=== PATIENT | male | born 1975 | race Caucasian/White ===

== ENCOUNTER → 2018-03-29 | Outpatient (CLI) | payer MEDICARE ==
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
== END | disposition home or self-care (01) ==
LOC: SLEEP 14:46
PROVIDERS: ATTEND Internal Medicine Critical Care Medicine
DX: G25.81 Restless legs syndrome (principal); M50.30 Other cervical disc degeneration, unspecified cervical region; M51.36 Other intervertebral disc degeneration, lumbar region; M19.90 Unspecified osteoarthritis, unspecified site; F41.9 Anxiety disorder, unspecified; E66.9 Obesity, unspecified; Z68.42 Body mass index [BMI] 45.0-49.9, adult; Z79.899 Other long term (current) drug therapy; Z79.1 Long term (current) use of non-steroidal anti-inflammatories (NSAID); Z88.8 Allergy status to other drugs, medicaments and biological substances
CPT/HCPCS: 99211

== ENCOUNTER 2019-01-20 09:08 | Inpatient (IN) | payer MEDICARE, OTHER ==
[2019-01-20] MEDS ORDERED: SODIUM CHLORIDE 0.9% 1,000 ML IV ONE ×2 (09:39→20:58)
--- NOTE | 2019-01-20 09:43 | ED ---
General Adult HPI - General Chief complaint: Skin/Abscess/Foreign Body Stated complaint: cyst on buttocks, fever Time Seen by Provider: 01/20/19 09:29 Source: patient, RN notes reviewed Mode of arrival: ambulatory Limitations: no limitations - History of Present Illness Initial comments: 43-year-old male presents emergency Department chief complaint of fever or chills, abscess of his buttocks. Patient states that he had severe shaking chills, diaphoresis and fever last night. Patient states that he is feeling nauseated. Patient states she's also noticed pain with bowel movements in pain and perirectal region. Patient states her some swelling noted. Patient has had a prior pilonidal cyst removal why Dr. Heredia several years ago. Patient denies a reoccurrence that nature. Patient denies current abdominal pain he did have some nausea with no vomiting. Denies chest pain, URI symptoms including cough, runny nose, sore throat. Patient is not taking any recent Tylenol Motrin. - Related Data Home Medications Medication Instructions Recorded Confirmed Diclofenac Sodium [Diclofenac 100 mg PO DAILY 01/20/19 01/20/19 Sodium ER] Ergocalciferol [Vitamin D2] 50,000 unit PO Q7D 01/20/19 01/20/19 Fluticasone Nasal [place] [Flonase 2 spr EA NOSTRIL DAILY 01/20/19 01/20/19 Nasal [place]] Gabapentin [Neurontin] 600 mg PO TID 01/20/19 01/20/19 LORazepam [Ativan] 1 mg PO BID 01/20/19 01/20/19 Niacin [Niaspan] 1,000 mg PO HS 01/20/19 01/20/19 Phentermine HCl [Adipex-P] 37.5 mg PO DAILY 01/20/19 01/20/19 Pramipexole [Mirapex] 2 mg PO HS 01/20/19 01/20/19 Ranitidine HCl [Zantac] 300 mg PO BID 01/20/19 01/20/19 Rizatriptan Benzoate [Maxalt GRADUATE CIVIL ENGINEER] 10 mg PO DAILY PRN 01/20/19 01/20/19 Simvastatin [Zocor] 20 mg PO HS 01/20/19 01/20/19 metFORMIN HCL [Glucophage] 850 mg PO BID 01/20/19 01/20/19 tiZANidine [Zanaflex] 4 mg PO Q8HR 01/20/19 01/20/19 Allergies Allergy/AdvReac Type Severity Reaction Status Date / Time No Known Allergies Allergy Verified 01/20/19 09:44 Review of Systems ROS Statement: Those systems with pertinent positive or pertinent negative responses have been documented in the HPI. ROS Other: All systems not noted in ROS Statement are negative. Past Medical History Additional Past Medical History / Comment(s): chronic knee pain, DDD History of Any Multi-Drug Resistant Organisms: None Reported Past Surgical History: Back Surgery, Orthopedic Surgery Additional Past Surgical History / Comment(s): carpal tunnel release, Past Psychological History: No Psychological Hx Reported Smoking Status: Never smoker Past Alcohol Use History: None Reported Past Drug Use History: None Reported General Exam Limitations: no limitations General appearance: alert, in no apparent distress Head exam: Present: atraumatic, normocephalic, normal inspection Respiratory exam: Present: normal lung sounds bilaterally. Absent: respiratory distress, wheezes, rales, rhonchi, stridor Cardiovascular Exam: Present: regular rate, normal rhythm, normal heart sounds. Absent: systolic murmur, diastolic murmur, rubs, gallop, clicks GI/Abdominal exam: Present: soft, normal bowel sounds. Absent: distended, tenderness, guarding, rebound, rigid Rectal exam: Present: other (Swelling noted in the perirectal region, mild erythema and tenderness with palpation) Back exam: Absent: CVA tenderness (R), CVA tenderness (L) Skin exam: Present: warm, dry, intact, normal color. Absent: rash Course Vital Signs 01/20/19 01/20/19 09:09 11:10 Temperature 98.9 F 98.8 F Pulse Rate 92 82 Respiratory 18 18 Rate Blood Pressure 119/66 125/65 O2 Sat by Pulse 93 L 98 Oximetry Medical Decision Making - Medical Decision Making 43-year-old male present emergency from for fever or chills abscess. Patient has pain or inflammation with no drainable abscess. Patient is 21,000 white count, hyperglycemia. He is a diabetic. Patient blood glucose is 450. Patient will be admitted for IV antibiotics, surgery consult, glucose control. - Lab Data Result diagrams: 01/20/19 09:50 01/20/19 09:50 Lab Results 05/12/0601/20/19 01/20/19 Range/Units 09:50 09:50 09:50 WBC 20.7 H (3.8-10.6) k/uL RBC 5.14 (4.30-5.90) m/uL Hgb 15.2 (13.0-17.5) gm/dL Hct 46.4 (39.0-53.0) % MCV 90.2 (80.0-100.0) fL MCH 29.6 (25.0-35.0) pg MCHC 32.8 (31.0-37.0) g/dL RDW 14.2 (11.5-15.5) % Plt Count 237 (150-450) k/uL Neutrophils % 81 % Lymphocytes % 11 % Monocytes % 5 % Eosinophils % 1 % Basophils % 0 % Neutrophils # 16.7 H (1.3-7.7) k/uL Lymphocytes # 2.4 (1.0-4.8) k/uL Monocytes # 1.1 H (0-1.0) k/uL Eosinophils # 0.2 (0-0.7) k/uL Basophils # 0.1 (0-0.2) k/uL PT (9.0-12.0) sec INR (<1.2) APTT (22.0-30.0) sec Sodium 133 L (137-145) mmol/L Potassium 3.8 (3.5-5.1) mmol/L Chloride 100 (98-107) mmol/L Carbon Dioxide 20 L (22-30) mmol/L Anion Gap 13 mmol/L BUN 13 (9-20) mg/dL Creatinine 0.82 (0.66-1.25) mg/dL Est GFR (CKD-EPI)AfAm >90 (>60 ml/min/1.73 sqM) Est GFR (CKD-EPI)NonAf >90 (>60 ml/min/1.73 sqM) Glucose 464 H (74-99) mg/dL Plasma Lactic Acid Eric 1.4 (0.7-2.0) mmol/L Calcium 9.7 (8.4-10.2) mg/dL Total Bilirubin 0.9 (0.2-1.3) mg/dL AST 18 (17-59) U/L ALT 56 (21-72) U/L Alkaline Phosphatase 117 (38-126) U/L Total Protein 7.2 (6.3-8.2) g/dL Albumin 4.1 (3.5-5.0) g/dL 01/20/19 Range/Units 09:50 WBC (3.8-10.6) k/uL RBC (4.30-5.90) m/uL Hgb (13.0-17.5) gm/dL Hct (39.0-53.0) % MCV (80.0-100.0) fL MCH (25.0-35.0) pg MCHC (31.0-37.0) g/dL RDW (11.5-15.5) % Plt Count (150-450) k/uL Neutrophils % % Lymphocytes % % Monocytes % % Eosinophils % % Basophils % % Neutrophils # (1.3-7.7) k/uL Lymphocytes # (1.0-4.8) k/uL Monocytes # (0-1.0) k/uL Eosinophils # (0-0.7) k/uL Basophils # (0-0.2) k/uL PT 11.0 (9.0-12.0) sec INR 1.0 (<1.2) APTT 27.7 (22.0-30.0) sec Sodium (137-145) mmol/L Potassium (3.5-5.1) mmol/L Chloride (98-107) mmol/L Carbon Dioxide (22-30) mmol/L Anion Gap mmol/L BUN (9-20) mg/dL Creatinine (0.66-1.25) mg/dL Est GFR (CKD-EPI)AfAm (>60 ml/min/1.73 sqM) Est GFR (CKD-EPI)NonAf (>60 ml/min/1.73 sqM) Glucose (74-99) mg/dL Plasma Lactic Acid Eric (0.7-2.0) mmol/L Calcium (8.4-10.2) mg/dL Total Bilirubin (0.2-1.3) mg/dL AST (17-59) U/L ALT (21-72) U/L Alkaline Phosphatase (38-126) U/L Total Protein (6.3-8.2) g/dL Albumin (3.5-5.0) g/dL Disposition Clinical Impression: Perianal cellulitis, Hyperglycemia, Leukocytosis Disposition: ADMITTED IP TO THIS HOSP Condition: Fair Referrals: Norbert Torres DO [Primary Care Provider] - 1-2 days
[2019-01-20] MEDS ORDERED: ONDANSETRON 4 MG/2 ML VIAL IVP STA (09:50)
[2019-01-20] MEDS ORDERED: MORPHINE SULFATE 4 MG/ML SYRINGE IVP STA (09:50)
[2019-01-20 10:16] LABS: Partial Thromboplastin Time 27.7 sec (22.0-30.0)
[2019-01-20 10:18] LABS: ALT 56 U/L (21-72); AST 18 U/L (17-59); Albumin 4.1 g/dL (3.5-5.0); Alkaline Phosphatase 117 U/L (38-126); Anion Gap 13 mmol/L; Blood Urea Nitrogen 13 mg/dL (9-20); Calcium 9.7 mg/dL (8.4-10.2); Carbon Dioxide 20 mmol/L (22-30); Chloride 100 mmol/L (98-107); Glucose 464 mg/dL (74-99); Potassium 3.8 mmol/L (3.5-5.1); Sodium 133 mmol/L (137-145); Total Bilirubin 0.9 mg/dL (0.2-1.3); Total Protein 7.2 g/dL (6.3-8.2)
[2019-01-20 10:39] LABS: Basophils # (A) 0.1 k/uL (0-0.2); Basophils % (A) 0 %; Eosinophils # (A) 0.2 k/uL (0-0.7); Eosinophils % (A) 1 %; HCT 46.4 % (39.0-53.0); HGB 15.2 gm/dL (13.0-17.5); Lymphocytes # (A) 2.4 k/uL (1.0-4.8); Lymphocytes % (A) 11 %; MCH 29.6 pg (25.0-35.0); MCHC 32.8 g/dL (31.0-37.0); MCV 90.2 fL (80.0-100.0); Mean Platelet Volume 7.2; Monocytes # (A) 1.1 k/uL (0-1.0); Monocytes % (A) 5 %; Neutrophils # (A) 16.7 k/uL (1.3-7.7); Neutrophils % (A) 81 %; Platelet Count 237 k/uL (150-450); RBC 5.14 m/uL (4.30-5.90); RDW 14.2 % (11.5-15.5); WBC 20.7 k/uL (3.8-10.6)
--- NOTE | 2019-01-20 10:40 | CT ---
EXAMINATION TYPE: CT pelvis w con DATE OF EXAM: 01/20/2019 COMPARISON: None HISTORY: Rectal pain and pressure for 1 week, possible abscess CT DLP: 1927.5 mGycm Automated exposure control for dose reduction was used. CONTRAST: Performed with IV Contrast, patient injected with 100 mL of Isovue 300. FINDINGS: Visualized liver is low dense consistent with diffuse fatty infiltration. Mild generalized fat replac ed atrophy of the pancreas is seen. No suspicious bowel dilatation. There is mild/moderate ill-defined fluid and fat stranding in the lef t. Anal soft tissue. No well-formed thick-walled fluid collection or drainable abscess is identified. This is centered axial images 75 through 85. Moderate disc space narrowing with vacuum disc phenomenon L4-L5 level is seen. Moderate narrowing of both hip joints is present. Prominent but subcentimeter bilateral groin lymph nodes. No suspicious adenopathy. Prostate gland and bladder are felt within normal limits. IMPRESSION: Moderate soft tissue inflammatory change left perianal fat without drainable abscess.
[2019-01-20] MEDS ORDERED: LEVOFLOXACIN 750MG-D5W PMX 750 MG in DEXTROSE/WATER 1 150ML.BAG IVPB STA (11:08)
[2019-01-20] MEDS ORDERED: metroNIDAZOLE-NS PMX 500 MG in SALINE 1 100ML.BAG IVPB STA (11:08)
[2019-01-20] MEDS ORDERED: NALOXONE 0.4 MG/ML 1 ML VIAL IV PRN (12:06)
[2019-01-20] MEDS ORDERED: VANCOMYCIN IV PER PHARMACY 1 EACH MISC MISCELLANE PRN (12:08)
[2019-01-20 12:46] LABS: Glucose,Whole Blood 312 mg/dL (75-99)
[2019-01-20] MEDS ORDERED: VANCOMYCIN 2,000 MG in SODIUM CHLORIDE 0.9% 500 ML 500 ML IVPB ONE (13:00)
[2019-01-20] MEDS: INSULIN ASPART (NovoLOG) 100 UNIT/ML VIAL SQ SCH ×3 (13:07→20:46)
--- NOTE | 2019-01-20 13:51 | P.GSCN ---
History of Present Illness Consult date: 01/20/19 History of present illness: Patient seen and evaluated. He reports previous laminectomy which overlapped his pilonidal cystectomy scar done by Dr. Call. Since then, he reports drainage. He reports being prediabetic but unaware of his hemoglobin A1c. Blood sugars is now elevated the last 3 weeks. He would like to avoid surgery. I personally reviewed his CT pelvis negative for necrotizing infection. Recommend IV antibiotics broad-spectrum including warm compress and control of blood sugars. Medical management otherwise. Past Medical History Additional Past Medical History / Comment(s): chronic knee pain, DDD History of Any Multi-Drug Resistant Organisms: None Reported Past Surgical History: Back Surgery, Orthopedic Surgery Additional Past Surgical History / Comment(s): carpal tunnel release, Past Psychological History: No Psychological Hx Reported Smoking Status: Never smoker Past Alcohol Use History: None Reported Past Drug Use History: None Reported Medications and Allergies Home Medications Medication Instructions Recorded Confirmed Type Diclofenac Sodium [Diclofenac 100 mg PO DAILY 01/20/19 01/20/19 History Sodium ER] Ergocalciferol [Vitamin D2] 50,000 unit PO Q7D 01/20/19 01/20/19 History Fluticasone Nasal [place] [Flonase 2 spr EA NOSTRIL DAILY 01/20/19 01/20/19 History Nasal [place]] Gabapentin [Neurontin] 600 mg PO TID 01/20/19 01/20/19 History LORazepam [Ativan] 1 mg PO BID 01/20/19 01/20/19 History Niacin [Niaspan] 1,000 mg PO HS 01/20/19 01/20/19 History Phentermine HCl [Adipex-P] 37.5 mg PO DAILY 01/20/19 01/20/19 History Pramipexole [Mirapex] 2 mg PO HS 01/20/19 01/20/19 History Ranitidine HCl [Zantac] 300 mg PO BID 01/20/19 01/20/19 History Rizatriptan Benzoate [Maxalt BEAN PICKER MACHINE OPERATOR] 10 mg PO DAILY PRN 01/20/19 01/20/19 History Simvastatin [Zocor] 20 mg PO HS 01/20/19 01/20/19 History metFORMIN HCL [Glucophage] 850 mg PO BID 01/20/19 01/20/19 History tiZANidine [Zanaflex] 4 mg PO Q8HR 01/20/19 01/20/19 History Allergies Allergy/AdvReac Type Severity Reaction Status Date / Time No Known Allergies Allergy Verified 01/20/19 09:44 Surgical - Exam Vital Signs Temp Pulse Resp BP Pulse Ox 98.9 F 92 18 119/66 93 L 01/20/19 09:09 01/20/19 09:09 01/20/19 09:09 01/20/19 09:09 01/20/19 09:09 Results - Labs 01/20/19 09:50 01/20/19 09:50 Abnormal Lab Results - Last 24 Hours (Table) 01/20/19 01/20/19 01/20/19 Range/Units 09:50 09:50 12:44 WBC 20.7 H (3.8-10.6) k/uL Neutrophils # 16.7 H (1.3-7.7) k/uL Monocytes # 1.1 H (0-1.0) k/uL Sodium 133 L (137-145) mmol/L Carbon Dioxide 20 L (22-30) mmol/L Glucose 464 H (74-99) mg/dL POC Glucose (mg/dL) 312 H (75-99) mg/dL Diabetes panel 01/20/19 Range/Units 09:50 Sodium 133 L (137-145) mmol/L Potassium 3.8 (3.5-5.1) mmol/L Chloride 100 (98-107) mmol/L Carbon Dioxide 20 L (22-30) mmol/L BUN 13 (9-20) mg/dL Creatinine 0.82 (0.66-1.25) mg/dL Glucose 464 H (74-99) mg/dL Calcium 9.7 (8.4-10.2) mg/dL AST 18 (17-59) U/L ALT 56 (21-72) U/L Alkaline Phosphatase 117 (38-126) U/L Total Protein 7.2 (6.3-8.2) g/dL Albumin 4.1 (3.5-5.0) g/dL Calcium panel 01/20/19 Range/Units 09:50 Calcium 9.7 (8.4-10.2) mg/dL Albumin 4.1 (3.5-5.0) g/dL Pituitary panel 01/20/19 Range/Units 09:50 Sodium 133 L (137-145) mmol/L Potassium 3.8 (3.5-5.1) mmol/L Chloride 100 (98-107) mmol/L Carbon Dioxide 20 L (22-30) mmol/L BUN 13 (9-20) mg/dL Creatinine 0.82 (0.66-1.25) mg/dL Glucose 464 H (74-99) mg/dL Calcium 9.7 (8.4-10.2) mg/dL Adrenal panel 01/20/19 Range/Units 09:50 Sodium 133 L (137-145) mmol/L Potassium 3.8 (3.5-5.1) mmol/L Chloride 100 (98-107) mmol/L Carbon Dioxide 20 L (22-30) mmol/L BUN 13 (9-20) mg/dL Creatinine 0.82 (0.66-1.25) mg/dL Glucose 464 H (74-99) mg/dL Calcium 9.7 (8.4-10.2) mg/dL Total Bilirubin 0.9 (0.2-1.3) mg/dL AST 18 (17-59) U/L ALT 56 (21-72) U/L Alkaline Phosphatase 117 (38-126) U/L Total Protein 7.2 (6.3-8.2) g/dL Albumin 4.1 (3.5-5.0) g/dL
--- NOTE | 2019-01-20 13:59 | P.HPIM ---
History of Present Illness H&P Date: 01/20/19 Chief Complaint: perianal cellulitis 43-year-old male with PMH of prediabetes presents the ED for fever and chills, rectal pain. Patient reports that he has been experiencing irritation in the perianal area over the past week with defecation. Patient reports profound chills yesterday midday followed by fevers. Patient was not able to check his temperature. Patient reports that this morning as he was attempting to have a bowel movement, he felt a mass the prompted him to come to the ED. Of note, patient reports a history of pilonidal cystthat was removed by Dr. Heredia greater than 10 years ago. He reports that there is occasional drainage from the surgical site, which happened after laminectomy/back surgery. Patient also reports headache that started yesterday, bilateral, pressure-like. He denies any stiff neck or photophobia. He denies any lower extremity edema, nausea, vomiting, cough, chest pain, shortness of breath, palpitations, changes in urination or bowel habits. No changes in appetite or weight. In the ED, vital signs are unremarkable. CBC shows a leukocytosis of 20.7. CMP shows a sodium of 133, bicarbonate of 20 and glucose of 464. Review of Systems Pertinent positives and negatives as discussed in HPI, a complete review of systems was performed and all other systems are negative. Past Medical History Additional Past Medical History / Comment(s): chronic knee pain, DDD History of Any Multi-Drug Resistant Organisms: None Reported Past Surgical History: Back Surgery, Orthopedic Surgery Additional Past Surgical History / Comment(s): carpal tunnel release, Past Psychological History: No Psychological Hx Reported Smoking Status: Never smoker Past Alcohol Use History: None Reported Past Drug Use History: None Reported Medications and Allergies Home Medications Medication Instructions Recorded Confirmed Type Diclofenac Sodium [Diclofenac 100 mg PO DAILY 01/20/19 01/20/19 History Sodium ER] Ergocalciferol [Vitamin D2] 50,000 unit PO Q7D 01/20/19 01/20/19 History Fluticasone Nasal [place] [Flonase 2 spr EA NOSTRIL DAILY 01/20/19 01/20/19 History Nasal [place]] Gabapentin [Neurontin] 600 mg PO TID 01/20/19 01/20/19 History LORazepam [Ativan] 1 mg PO BID 01/20/19 01/20/19 History Niacin [Niaspan] 1,000 mg PO HS 01/20/19 01/20/19 History Phentermine HCl [Adipex-P] 37.5 mg PO DAILY 01/20/19 01/20/19 History Pramipexole [Mirapex] 2 mg PO HS 01/20/19 01/20/19 History Ranitidine HCl [Zantac] 300 mg PO BID 01/20/19 01/20/19 History Rizatriptan Benzoate [Maxalt MANAGER SYSTEMS] 10 mg PO DAILY PRN 01/20/19 01/20/19 History Simvastatin [Zocor] 20 mg PO HS 01/20/19 01/20/19 History metFORMIN HCL [Glucophage] 850 mg PO BID 01/20/19 01/20/19 History tiZANidine [Zanaflex] 4 mg PO Q8HR 01/20/19 01/20/19 History Allergies Allergy/AdvReac Type Severity Reaction Status Date / Time No Known Allergies Allergy Verified 01/20/19 09:44 Physical Exam Vitals: Vital Signs Temp Pulse Resp BP Pulse Ox 01/20/19 11:10 98.8 F 82 18 125/65 98 01/20/19 09:09 98.9 F 92 18 119/66 93 L Intake and Output 01/19/19 01/20/19 01/20/19 22:59 06:59 14:59 Other: Weight 136.078 kg General: [non toxic], [no distress], [appears at stated age] Derm: [warm], [dry] Head: [atraumatic], [normocephalic], [symmetric] Eyes: [EOMI], [no lid lag], [anicteric sclera] Mouth: [no lip lesion], [mucus membranes moist] Cardiovascular: [S1S2 reg], [no murmur], [positive DP pulse bilateral] Lungs: [CTA bilateral], [no rhonchi, no rales] , [no accessory muscle use] Abdominal: [soft], [ nontender to palpation], [no guarding], [no appreciable organomegaly], [there is some perianal erythema which is tender to palpation] Ext: [no gross muscle atrophy], [no edema], [no contractures], [midline surgical scar of the thoracic and lumbar area] Neuro: [ CN II-XI grossly intact], [no focal neuro deficits] Psych: [Alert], [oriented], [appropriate affect] Results CBC & Chem 7: 01/20/19 09:50 01/20/19 09:50 Labs: Abnormal Lab Results - Last 24 Hours (Table) 01/20/19 01/20/19 01/20/19 Range/Units 09:50 09:50 12:44 WBC 20.7 H (3.8-10.6) k/uL Neutrophils # 16.7 H (1.3-7.7) k/uL Monocytes # 1.1 H (0-1.0) k/uL Sodium 133 L (137-145) mmol/L Carbon Dioxide 20 L (22-30) mmol/L Glucose 464 H (74-99) mg/dL POC Glucose (mg/dL) 312 H (75-99) mg/dL Thrombosis Risk Factor Assmnt - Choose All That Apply Any of the Below Risk Factors Present?: Yes Each Factor Represents 1 point: Age 41-60 years Thrombosis Risk Factor Assessment Total Risk Factor Score: 1 Thrombosis Risk Factor Assessment Level: Low Risk Assessment and Plan Assessment: Assessment and Plan Perianal cellulitis Hyponatremia Metabolic acidosis Diabetes mellitus with hyperglycemia Patient is leukocytosis of 20.7, afebrile. Vital signs within normal limits. Pelvic CT shows moderate soft tissue inflammatory changes in the left perianal fat without abscess. Plan: continue vancomycin, Flagyl, levofloxacin IV for broad-spectrum coverage. Tylenol or morphine as needed for pain management. Tylenol as needed for fever or chills.follow blood culture. Follow general surgery consult. Follow ID consult. Sodium 133. This is pseudo-hyponatremia given patient's elevated blood glucose. Plan: Daily BMP. Bicarbonate of 20. Unknown etiology. Lactic acid within normal limits. Plain: Repeat BMP in the AM. [id number] glucose 312. Likely secondary to stress from infection. Plan: Low carb diet. Insulin sliding scale. Regular Accu-Cheks. Hypoglycemic precautions. DVT prophylaxis: [heparin] Discussed with: [patient] Anticipated discharge: [tomorrow] Anticipated discharge place: [home] A total of [30] minutes was spent on the care of this complex patient more than 50% of the time was spent in counseling and care coordination. Patient names his Neyda indicates that he can make decisions for himself. Patient reiterates FULL CODE.
[2019-01-20] MEDS: SODIUM CHLORIDE 0.9% 1,000 ML IV SCH (14:36)
[2019-01-20] MEDS: HYDROcodone/APAP 5-325MG 1 EACH TAB PO PRN ×2 (14:48→17:53)
[2019-01-20] MEDS: MORPHINE SULFATE 4 MG/ML SYRINGE IV PRN ×2 (14:49→21:11)
--- NOTE | 2019-01-20 16:55 | P.CONS ---
History of Present Illness - Reason for Consult Consult date: 01/20/19 Perianal Cellulitis Requesting physician: Alisha Matta - Chief Complaint Left middle pain swelling x one day - History of Present Illness Patient is a 43 male with a past medical history significant for pulmonary disease surgery a few years ago, patient complained he did have occasional drainage from that site off and on, patient noticed yesterday after developing swelling pain and tenderness to the left gluteal area, patient is in the pain to be dull aching to sharp 5-6 out of 10 and no radiation, patient did have an open wound or any drainage, with the symptoms the patient presented to [facility] ER with the patient was evaluated by the physician on presentation the patient has been afebrile, the patient did have elevated white count 20,000, patient did have CT of the pelvis completed we did shows evidence of moderate soft tissue inflammation changes left perianal fat without drainable abscess, patient has been started on vancomycin and Flagyl and admitted to the hospital infectious disease was consulted for further recommendation regarding antibiotic therapy patient currently denies history of recurrent skin and soft tissue infection and did not recall. History of MRSA infection either Review of Systems Review of system Constitutional: The patient complaining of feeling cold and chills, the patient does complain of weakness. Eyes: No complaint ENT: No complaint Respiratory: No complaint Cardiovascular: No complaint Gastrointestinal: As per history of present illness Genitourinary: No complaint Musculoskeletal: No complaint Integumentary: As per history of present illness Endocrine : No complaint Psycologial : No complaint Neurological: No complaint. Past Medical History Additional Past Medical History / Comment(s): chronic knee pain, DDD History of Any Multi-Drug Resistant Organisms: None Reported Past Surgical History: Back Surgery, Orthopedic Surgery Additional Past Surgical History / Comment(s): carpal tunnel release, Past Psychological History: No Psychological Hx Reported Smoking Status: Never smoker Past Alcohol Use History: None Reported Past Drug Use History: None Reported Medications and Allergies Home Medications Medication Instructions Recorded Confirmed Type Diclofenac Sodium [Diclofenac 100 mg PO DAILY 01/20/19 01/20/19 History Sodium ER] Ergocalciferol [Vitamin D2] 50,000 unit PO Q7D 01/20/19 01/20/19 History Fluticasone Nasal [place] [Flonase 2 spr EA NOSTRIL DAILY 01/20/19 01/20/19 History Nasal [place]] Gabapentin [Neurontin] 600 mg PO TID 01/20/19 01/20/19 History LORazepam [Ativan] 1 mg PO BID 01/20/19 01/20/19 History Niacin [Niaspan] 1,000 mg PO HS 01/20/19 01/20/19 History Phentermine HCl [Adipex-P] 37.5 mg PO DAILY 01/20/19 01/20/19 History Pramipexole [Mirapex] 2 mg PO HS 01/20/19 01/20/19 History Ranitidine HCl [Zantac] 300 mg PO BID 01/20/19 01/20/19 History Rizatriptan Benzoate [Maxalt FOLDER GLU[employer] OPERATOR] 10 mg PO DAILY PRN 01/20/19 01/20/19 History Simvastatin [Zocor] 20 mg PO HS 01/20/19 01/20/19 History metFORMIN HCL [Glucophage] 850 mg PO BID 01/20/19 01/20/19 History tiZANidine [Zanaflex] 4 mg PO Q8HR 01/20/19 01/20/19 History Allergies Allergy/AdvReac Type Severity Reaction Status Date / Time No Known Allergies Allergy Verified 01/20/19 09:44 Physical Exam Vitals: Vital Signs Temp Pulse Resp BP Pulse Ox 01/20/19 14:41 87 16 118/69 96 01/20/19 11:10 98.8 F 82 18 125/65 98 01/20/19 09:09 98.9 F 92 18 119/66 93 L Intake and Output 01/20/19 01/20/19 01/20/19 06:59 14:59 22:59 Other: Weight 136.078 kg GENERAL DESCRIPTION: Middle-aged male lying in bed, no distress. No tachypnea or accessory muscle of respiration use. HEENT: Shows Pallor , no scleral icterus. Oral mucous membrane is dry. No pharyngeal erythema or thrush NECK: Trachea central, no thyromegaly. LUNGS: Unlabored breathing. Clear to auscultation anteriorly. No wheeze or crackle. HEART: S1, S2, regular rate and rhythm. No loud murmur ABDOMEN: Soft, no tenderness , guarding or rigidity, no organomegaly Left gluteal area with some swelling redness induration and tenderness but no drainage EXTREMITIES: No edema of feet. SKIN: No rash, no masses palpable. NEUROLOGICAL: The patient is awake, alert, oriented x3, mood and affect normal. Results CBC & Chem 7: 01/20/19 09:50 01/20/19 09:50 Labs: Abnormal Lab Results - Last 24 Hours (Table) 01/20/19 01/20/19 01/20/19 Range/Units 09:50 09:50 12:44 WBC 20.7 H (3.8-10.6) k/uL Neutrophils # 16.7 H (1.3-7.7) k/uL Monocytes # 1.1 H (0-1.0) k/uL Sodium 133 L (137-145) mmol/L Carbon Dioxide 20 L (22-30) mmol/L Glucose 464 H (74-99) mg/dL POC Glucose (mg/dL) 312 H (75-99) mg/dL Assessment and Plan Assessment: 1-patient with left gluteal cellulitis with a question of possible secondary to gram-positive pathogen however in view of close proximity to end colostomy to cover for gram-negative pathogen as well Currently with no evidence of any drainable abscess (1) Leukocytosis Current Visit: Yes Status: Acute Code(s): D72.829 - ELEVATED WHITE BLOOD CELL COUNT, UNSPECIFIED SNOMED Code(s): 514181451 (2) Perianal cellulitis Current Visit: Yes Status: Acute Code(s): K61.0 - ANAL ABSCESS SNOMED Code(s): 057924381 Plan: 1-patient will be treated with vancomycin pharmacy to dose target trough of 15 with worsening his kidney function Vanco trough closely 2-we'll add cefepime 2 g every 12 hours 3-patient has been instructed if the area started to drain to let the RN know so culture should be obtained We will follow his clinical condition and cultures to further adjust medication if needed Thank you for this consultation will follow this patient along with you
[2019-01-20 16:59] LABS: Glucose,Whole Blood 265 mg/dL (75-99)
[2019-01-20] MEDS: GABAPENTIN 300 MG CAP PO SCH ×2 (17:07→21:11)
[2019-01-20] MEDS: metroNIDAZOLE-NS PMX 500 MG in SALINE 1 100ML.BAG IVPB SCH (17:54)
[2019-01-20 18:27] LABS: Appearance,Urine Clear (Clear); Bilirubin,Urine Negative (Negative); Blood,Urine Negative (Negative); Color,Urine Yellow; Glucose,Urine (UA) 4+ (Negative); Ketones,Urine Trace (Negative); Leukocyte Esterase,Urine Negative (Negative); Nitrite,Urine Negative (Negative); PH, Urine 5.5 (5.0-8.0); Protein,Urine Trace (Negative)
[2019-01-20 18:55] LABS: Specific Gravity,Urine >1.050 (1.001-1.035)
[2019-01-20 20:32] LABS: Glucose,Whole Blood 253 mg/dL (75-99)
[2019-01-20] MEDS: CEFEPIME 2 GM in SODIUM CHLORIDE 0.9% 100 ML IVPB SCH (21:11)
[2019-01-20] MEDS: PRAMIPEXOLE 1 MG TAB PO SCH (21:11)
[2019-01-20] MEDS: LORazepam 1 MG TAB PO SCH (21:11)
[2019-01-20] MEDS: ONDANSETRON 4 MG/2 ML VIAL IVP PRN (21:11)
[2019-01-20] MEDS: ACETAMINOPHEN TAB 325 MG TAB PO PRN (21:12)
[2019-01-20] MEDS: ATORVASTATIN 10 MG TAB PO SCH (21:12)
[2019-01-20] MEDS ORDERED: SODIUM CHLORIDE 0.65% NASAL SPRAY 44 ML BTL NASAL PRN (21:14)
[2019-01-20] MEDS: HEPARIN SODIUM,PORCINE 5,000 UNIT/ML 1 ML VIAL SQ SCH (21:27)
[2019-01-20] MEDS: VANCOMYCIN 2,000 MG in SODIUM CHLORIDE 0.9% 500 ML 500 ML IVPB SCH (22:00)
[2019-01-20] MEDS: FLUTICASONE 50MCG/SPRAY NASAL 16GM EA NOSTRIL SCH (22:03)
[2019-01-21] MEDS: HYDROcodone/APAP 5-325MG 1 EACH TAB PO PRN ×5 (00:45→22:24)
[2019-01-21] MEDS: metroNIDAZOLE-NS PMX 500 MG in SALINE 1 100ML.BAG IVPB SCH ×3 (01:06→17:04)
[2019-01-21] MEDS: SODIUM CHLORIDE 0.9% 1,000 ML IV SCH ×3 (01:06→19:50)
[2019-01-21] MEDS: ACETAMINOPHEN TAB 325 MG TAB PO PRN (03:24)
[2019-01-21] MEDS: MORPHINE SULFATE 4 MG/ML SYRINGE IV PRN ×4 (03:24→19:49)
[2019-01-21] MEDS: VANCOMYCIN 2,000 MG in SODIUM CHLORIDE 0.9% 500 ML 500 ML IVPB SCH ×3 (05:44→21:30)
[2019-01-21] MEDS: ONDANSETRON 4 MG/2 ML VIAL IVP PRN (05:44)
[2019-01-21 07:02] LABS: Glucose,Whole Blood 235 mg/dL (75-99)
[2019-01-21] MEDS: HEPARIN SODIUM,PORCINE 5,000 UNIT/ML 1 ML VIAL SQ SCH ×2 (07:38→20:43)
[2019-01-21] MEDS: INSULIN ASPART (NovoLOG) 100 UNIT/ML VIAL SQ SCH ×6 (07:45→21:29)
[2019-01-21] MEDS: LORazepam 1 MG TAB PO SCH ×2 (07:45→19:48)
[2019-01-21] MEDS: GABAPENTIN 300 MG CAP PO SCH ×3 (07:45→21:30)
[2019-01-21] MEDS: FLUTICASONE 50MCG/SPRAY NASAL 16GM EA NOSTRIL SCH (07:47)
[2019-01-21 08:12] LABS: Anion Gap 8 mmol/L; Blood Urea Nitrogen 10 mg/dL (9-20); Calcium 8.4 mg/dL (8.4-10.2); Carbon Dioxide 23 mmol/L (22-30); Chloride 104 mmol/L (98-107); Glucose 212 mg/dL (74-99); Potassium 3.8 mmol/L (3.5-5.1); Sodium 135 mmol/L (137-145)
[2019-01-21 08:44] LABS: Basophils # (A) 0.1 k/uL (0-0.2); Basophils % (A) 0 %; Eosinophils # (A) 0.1 k/uL (0-0.7); Eosinophils % (A) 1 %; HCT 41.8 % (39.0-53.0); HGB 13.5 gm/dL (13.0-17.5); Lymphocytes # (A) 2.8 k/uL (1.0-4.8); Lymphocytes % (A) 14 %; MCH 29.1 pg (25.0-35.0); MCHC 32.3 g/dL (31.0-37.0); MCV 89.9 fL (80.0-100.0); Mean Platelet Volume 7.6; Monocytes # (A) 1.1 k/uL (0-1.0); Monocytes % (A) 5 %; Neutrophils # (A) 15.8 k/uL (1.3-7.7); Neutrophils % (A) 79 %; Platelet Count 203 k/uL (150-450); RBC 4.65 m/uL (4.30-5.90); RDW 13.6 % (11.5-15.5)
[2019-01-21] MEDS: CEFEPIME 2 GM in SODIUM CHLORIDE 0.9% 100 ML IVPB SCH ×2 (09:15→19:49)
[2019-01-21 11:51] LABS: Glucose,Whole Blood 275 mg/dL (75-99)
--- NOTE | 2019-01-21 12:03 | P.PN ---
Subjective Progress Note Date: 01/21/19 Principal diagnosis: perianal cellulitis Patient was seen and examined. No acute events overnight. T-max 101.3 Fahrenheit yesterday around 9 PM. Patient reports increase in the size of his cellulitis and erythema, eventually started draining serous sanguinous fluid. Culture was sent. He reports fever and chills overnight. He denies any chest pain, shortness of breath or palpitations. No nausea or vomiting. Objective - Vital Signs Vital signs: Vital Signs Temp 97.9 F 01/21/19 07:15 Pulse 91 01/21/19 08:00 Resp 15 01/21/19 07:15 BP 133/72 01/21/19 07:15 Pulse Ox 95 01/21/19 07:15 Intake & Output 01/20/19 01/21/19 01/21/19 18:59 06:59 18:59 Intake Total 1900 240 Output Total 1000 Balance 900 240 Weight 136.078 kg Intake: Intake, IV Titration 1900 Amount Sodium Chloride 0.9% 1, 800 000 ml @ 100 mls/hr IV . Q10H [facility] Rx#:[id number] Sodium Chloride 0.9% 1, 1000 000 ml @ 999 mls/hr IV . Q1H1M ONE Rx#:[id number] metroNIDAZOLE-NS PMX 500 100 mg In Saline 1 100ml.bag @ 100 mls/hr IVPB ONCE STA Rx#:[id number] Oral 240 Output: Urine 1000 Other: Voiding Method Toilet # Voids 1 - Exam General: [non toxic], [no distress], [appears at stated age] Derm: [warm], [dry] Head: [atraumatic], [normocephalic], [symmetric] Eyes: [EOMI], [no lid lag], [anicteric sclera] Mouth: [no lip lesion], [mucus membranes moist] Cardiovascular: [S1S2 reg], [no murmur], [positive DP pulse bilateral] Lungs: [CTA bilateral], [no rhonchi, no rales] , [no accessory muscle use] Abdominal: [soft], [ nontender to palpation], [no guarding], [no appreciable organomegaly], [there is some perianal erythema which is tender to palpation, draining serosanguineous fluid, increased swelling] Ext: [no gross muscle atrophy], [no edema], [no contractures], [midline surgical scar of the thoracic and lumbar area] Neuro: [no focal neuro deficits] Psych: [Alert], [oriented], [appropriate affect] - Labs CBC & Chem 7: 01/21/19 06:51 01/21/19 06:51 Labs: Abnormal Lab Results - Last 24 Hours (Table) 01/20/19 01/20/19 01/20/19 Range/Units 12:44 16:38 18:18 WBC (3.8-10.6) k/uL Neutrophils # (1.3-7.7) k/uL Monocytes # (0-1.0) k/uL Sodium (137-145) mmol/L Creatinine (0.66-1.25) mg/dL Glucose (74-99) mg/dL POC Glucose (mg/dL) 312 H 265 H (75-99) mg/dL Ur Specific [place] >1.050 H (1.001-1.035) Urine Protein Trace H (Negative) Urine Glucose (UA) 4+ H (Negative) Urine Ketones Trace H (Negative) 01/20/19 01/21/19 01/21/19 Range/Units 20:20 06:49 06:51 WBC 20.0 H (3.8-10.6) k/uL Neutrophils # 15.8 H (1.3-7.7) k/uL Monocytes # 1.1 H (0-1.0) k/uL Sodium (137-145) mmol/L Creatinine (0.66-1.25) mg/dL Glucose (74-99) mg/dL POC Glucose (mg/dL) 253 H 235 H (75-99) mg/dL Ur Specific [place] (1.001-1.035) Urine Protein (Negative) Urine Glucose (UA) (Negative) Urine Ketones (Negative) 01/21/19 01/21/19 Range/Units 06:51 11:39 WBC (3.8-10.6) k/uL Neutrophils # (1.3-7.7) k/uL Monocytes # (0-1.0) k/uL Sodium 135 L (137-145) mmol/L Creatinine 0.60 L (0.66-1.25) mg/dL Glucose 212 H (74-99) mg/dL POC Glucose (mg/dL) 275 H (75-99) mg/dL Ur Specific [place] (1.001-1.035) Urine Protein (Negative) Urine Glucose (UA) (Negative) Urine Ketones (Negative) Assessment and Plan Assessment: Assessment and Plan Perianal cellulitis Hyponatremia Metabolic acidosis Diabetes mellitus with hyperglycemia Patient is leukocytosis of 20.7-20, T-max 101.3 9 PM yesterday. Vital signs within normal limits. Pelvic CT shows moderate soft tissue inflammatory changes in the left perianal fat without abscess. Plan: Continue vancomycin and Flagyl IV. Infectious disease consulted, recommends addition of cefepime. Tylenol or morphine as needed for pain management. Tylenol as needed for fever or chills. Follow blood culture. Follow wound cultures. Follow general surgery consult. Follow ID consult. Sodium 133-135. This is pseudo-hyponatremia given patient's elevated blood glucose. Plan: Daily BMP. Bicarbonate of 20-23. Unknown etiology. Lactic acid within normal limits. Plain: resolved. [id number] glucose 275. Likely secondary to stress from infection. Plan: Low carb diet. Insulin sliding scale. Regular Accu-Cheks. Hypoglycemic precautions. Start NovoLog 2 units 3 times a day. DVT prophylaxis: [Heparin] Discussed with: [Patient] Anticipated discharge: [1-2 days] Anticipated discharge place: [Home] Patient names his Neyda indicates that he can make decisions for himself. Patient reiterates FULL CODE.
--- NOTE | 2019-01-21 15:59 | P.PN ---
Subjective Progress Note Date: 01/21/19 CHIEF COMPLAINT: Buttock cellulitis, left HISTORY OF PRESENT ILLNESS: The patient is a 43-year-old male who comes in with history of left buttock cellulitis ongoing for more than several days. He comes in poorly controlled diabetic blood sugars over 200 to 300s. His wound has spontaneously drained earlier today where cultures were sent. ROS: No fevers or chills. No chest pain. PHYSICAL EXAM: VITAL SIGNS: Reviewed CONSTITUTIONAL: Well developed and in no acute distress. EYES: Conjuctivae without sclera icterus. Extraocular movements grossly intact. HEAD, EARS, NOSE, THROAT: Moist buccal mucosa. Head is atraumatic, normocephalic. Hears conversational speech. No nasal drainage. NECK: Supple. No thyroidomegaly. RESPIRATORY: Non-labored respirations and equal bilateral excursions. CARDIOVASCULAR: Palpable 2+ radial pulses. Regular rate. Regular rhythm. ABDOMEN: Protuberant soft nontender nondistended MUSCULOSKELETAL: No gross deformity of the lower extremities noted. No clubb ing. No cyanosis. SKIN: Good skin turgor. Well perfused. Cellulitis left buttock over 6 x 8 cm with spontaneous seropurulent drainage. No crepitus. NEUROLOGIC: Cranial nerves I through XII grossly intact. PSYCH: Appropriate affect. Alert and oriented to person, place and time. CLINCAL LABS: White blood cell count persistent over 20,000 STUDIES: CT pelvis negative for necrotizing fasciitis ASSESSMENT: 1. Cellulitis left buttock 2. Poorly controlled diabetes type 2 3. Morbid obesity due to excess calories, BMI 44.3 PLAN: 1. I discussed surgical intervention with incision and drainage 2. Await cultures from microbiology 3. Hemoglobin A1c ordered for history of poorly controlled diabetes 4. Continue broad-spectrum antibiotics Objective - Vital Signs Vital signs: Vital Signs Temp 100.4 F H 01/21/19 14:30 Pulse 93 01/21/19 14:30 Resp 15 01/21/19 14:30 BP 121/70 01/21/19 14:30 Pulse Ox 95 01/21/19 14:30 Intake & Output 01/20/19 01/21/19 01/21/19 18:59 06:59 18:59 Intake Total 1900 480 Output Total 1000 1200 Balance 900 -720 Weight 136.078 kg Intake: Intake, IV Titration 1900 Amount Sodium Chloride 0.9% 1, 800 000 ml @ 100 mls/hr IV . Q10H [facility] Rx#:[id number] Sodium Chloride 0.9% 1, 1000 000 ml @ 999 mls/hr IV . Q1H1M ONE Rx#:[id number] metroNIDAZOLE-NS PMX 500 100 mg In Saline 1 100ml.bag @ 100 mls/hr IVPB ONCE STA Rx#:[id number] Oral 480 Output: Urine 1000 1200 Other: Voiding Method Toilet # Voids 1 3 - Labs CBC & Chem 7: 01/21/19 06:51 01/21/19 06:51 Labs: Abnormal Lab Results - Last 24 Hours (Table) 01/20/19 01/20/19 01/20/19 Range/Units 16:38 18:18 20:20 WBC (3.8-10.6) k/uL Neutrophils # (1.3-7.7) k/uL Monocytes # (0-1.0) k/uL Sodium (137-145) mmol/L Creatinine (0.66-1.25) mg/dL Glucose (74-99) mg/dL POC Glucose (mg/dL) 265 H 253 H (75-99) mg/dL Ur Specific [place] >1.050 H (1.001-1.035) Urine Protein Trace H (Negative) Urine Glucose (UA) 4+ H (Negative) Urine Ketones Trace H (Negative) 01/21/19 01/21/19 01/21/19 Range/Units 06:49 06:51 06:51 WBC 20.0 H (3.8-10.6) k/uL Neutrophils # 15.8 H (1.3-7.7) k/uL Monocytes # 1.1 H (0-1.0) k/uL Sodium 135 L (137-145) mmol/L Creatinine 0.60 L (0.66-1.25) mg/dL Glucose 212 H (74-99) mg/dL POC Glucose (mg/dL) 235 H (75-99) mg/dL Ur Specific [place] (1.001-1.035) Urine Protein (Negative) Urine Glucose (UA) (Negative) Urine Ketones (Negative) 01/21/19 Range/Units 11:39 WBC (3.8-10.6) k/uL Neutrophils # (1.3-7.7) k/uL Monocytes # (0-1.0) k/uL Sodium (137-145) mmol/L Creatinine (0.66-1.25) mg/dL Glucose (74-99) mg/dL POC Glucose (mg/dL) 275 H (75-99) mg/dL Ur Specific [place] (1.001-1.035) Urine Protein (Negative) Urine Glucose (UA) (Negative) Urine Ketones (Negative) Microbiology - Last 24 Hours (Table) 01/20/19 09:50 Blood Culture - Preliminary Blood No Growth after 24 hours
[2019-01-21 16:42] LABS: Glucose,Whole Blood 270 mg/dL (75-99)
[2019-01-21] MEDS: PRAMIPEXOLE 1 MG TAB PO SCH (19:49)
[2019-01-21] MEDS: ATORVASTATIN 10 MG TAB PO SCH (19:49)
[2019-01-21] MEDS ORDERED: VANCOMYCIN TROUGH DUE 1 EACH MISC MISCELLANE ONE (20:00)
[2019-01-21 21:18] LABS: Glucose,Whole Blood 218 mg/dL (75-99)
[2019-01-22] MEDS: metroNIDAZOLE-NS PMX 500 MG in SALINE 1 100ML.BAG IVPB SCH ×3 (01:31→16:41)
[2019-01-22] MEDS: VANCOMYCIN 2,000 MG in SODIUM CHLORIDE 0.9% 500 ML 500 ML IVPB SCH (04:19)
[2019-01-22] MEDS: SODIUM CHLORIDE 0.9% 1,000 ML IV SCH ×2 (04:22→16:13)
[2019-01-22] MEDS: ONDANSETRON 4 MG/2 ML VIAL IVP PRN (07:00)
[2019-01-22] MEDS: MORPHINE SULFATE 4 MG/ML SYRINGE IV PRN ×2 (07:05→21:30)
[2019-01-22] MEDS: FLUTICASONE 50MCG/SPRAY NASAL 16GM EA NOSTRIL SCH (07:07)
[2019-01-22] MEDS: GABAPENTIN 300 MG CAP PO SCH ×3 (07:07→21:29)
[2019-01-22] MEDS: HEPARIN SODIUM,PORCINE 5,000 UNIT/ML 1 ML VIAL SQ SCH ×2 (07:07→19:15)
[2019-01-22] MEDS: LORazepam 1 MG TAB PO SCH ×2 (07:08→19:15)
[2019-01-22 07:29] LABS: Glucose,Whole Blood 272 mg/dL (75-99)
[2019-01-22] MEDS: INSULIN ASPART (NovoLOG) 100 UNIT/ML VIAL SQ SCH ×7 (08:30→21:29)
[2019-01-22] MEDS ORDERED: MORPHINE SULFATE 4 MG/ML SYRINGE IV PRN (08:31)
[2019-01-22] MEDS ORDERED: MIDAZOLAM 2 MG/2 ML VIAL ONE (09:06)
[2019-01-22] MEDS ORDERED: PROPOFOL 10 MG/ML 20 ML VIAL IV ONE (09:06)
[2019-01-22] MEDS ORDERED: fentaNYL (PF) 50 MCG/ML 2 ML AMP ONE (09:06)
[2019-01-22] MEDS ORDERED: LIDOCAINE 1% INJ 10MG/ML (20 ML MDV) ONE (09:06)
[2019-01-22] MEDS ORDERED: IV FLUID CONTINUATION 800 ML IV ONE ×2 (09:06)
[2019-01-22] MEDS ORDERED: SUCCINYLCHOLINE CHLORIDE VIAL 200 MG/10 ML VIAL IV ONE (09:06)
[2019-01-22] MEDS ORDERED: KETAMINE 10 MG/ML 20 ML VIAL ONE (09:06)
--- NOTE | 2019-01-22 09:06 | P.HPADDEND ---
H&P Addendum H&P Addendum Date: 01/22/19 He now has worsening fevers including increased size of left buttock abscess/cellulitis. We will proceed with incision and drainage of the left buttock
[2019-01-22] MEDS ORDERED: BUPIVACAIN-EPI 0.5%-1:200,000 30 ML VIAL SQ ONE (09:36)
--- NOTE | 2019-01-22 10:15 | P.OP ---
Date of Procedure: 01/22/19 Description of Procedure: SURGEON: MARIANA ROSS MD PROFESSOR OF SURGERY: None. Date of Procedure: 01/22/19 Preoperative Diagnosis: 1. History of recurrent pilonidal cyst, complicated 2. Morbid obesity due to excess calories, BMI 44.3 3. Diabetes type 2, uncontrolled, new diagnosis 4. Sepsis due to left buttock abscess with cellulitis Postoperative Diagnosis: 1. History of recurrent pilonidal cyst, complicated 2. Morbid obesity due to excess calories, BMI 44.3 3. Diabetes type 2, uncontrolled, new diagnosis 4. Sepsis due to left buttock abscess with cellulitis Procedure(s) Performed: 1. Excision of benign lesion, left buttock 3 x 1 cm subcutaneous tissue 2. Drainage of complicated left buttock abscess/cellulitis, deep subcutaneous tissue, 8 x 6 cm 3. Water jet lavage 3 L normal saline left buttock, 8 x 6 cm Anesthesia: GETA, local Estimated Blood Loss (ml): 10 Pathology: other (1. Tissue culture, left buttock cellulitis 2. Aerobic and anaerobic culture left buttock cellulitis) Condition: stable Complications: None Operative Findings: 1. Deep subcutaneous pocket left buttock from the pilonidal cyst extending to the perineum. 2. Cellulitis of 8 x 6 cm 3. No evidence of necrotizing infection 4. Yellow non-malodorous thin purulence draining from left buttock, 20 mL evacuated 5. [place] drain quarter inch with Incision Left Lateral Buttock Extending to Deep inferior Perineum 6. All pockets drained with loculations disrupted from the pilonidal abscess, left buttock/perianal to the perineum INDICATIONS: The patient is a 43-year-old gentleman who presents with a history of a complex pilonidal abscess, recurrent. Benefits, risks including bleeding, infection, recurrence, were described in length for surgical intervention. Informed consent was obtained. DESCRIPTION OF PROCEDURE: Patient was brought into the operating room and initially placed under general induction. He was then placed in prone jackknife position. The buttocks were spread apart and prepped and draped in standard sterile fashion. Prior to incision, a timeout protocol was confirmed with the surgical team, regarding the patient's name including procedures to be preformed. He is on scheduled IV antibiotics. Along the left inferior buttock and gluteal cleft, a 8 x 6 cm deep subcutaneous abscess was palpated with a draining pilonidal abscess along the midline superiorly. The skin was incised down to the deel subcutaneous tissue in an elliptical fashion transversely 3 cm x 1 cm incision and immediately charli purulence was expressed from the wound. Hemostasis was checked with electric Bovie cautery. Deep subcutaneous pocket left buttock from the pilonidal cyst was found extending to the perineum. A left buttock cellulitis of 8 x 6 cm was found. No evidence of necrotizing infection was found. Yellow non-malodorous thin purulence draining from left buttock, 20 mL was evacuated. [place] drain quarter inch was placed into the incision left lateral buttock extending to the deep inferior perineum cut to 8 cm. All pockets drained with loculations were disrupted from the pilonidal abscess, left buttock/perianal to the perineum. Aerobic and anaerobic cultures were obtained of the wound. Dilute hydrogen peroxide was used to irrigate the pocket as loculations were disrupted using digital palpation. Using pulse lavage of 3 L normal saline, the wound was copiously irrigated and cleansed. Next, 4 x 4 fluffs followed by ABDs were placed with Medipore tape and mesh underwear. At the end of the procedure needle, sponge, and instrument count was verified correct by assembler surgical garment. The patient was awoken from anesthesia and taken to the postanesthesia care unit in stable condition.
[2019-01-22] MEDS: LACTATED RINGERS 1,000 ML IV SCH (10:29)
[2019-01-22] MEDS: KETOROLAC 30 MG/ML 1 ML VIAL IVP SCH ×3 (10:29→21:29)
[2019-01-22] MEDS: CEFEPIME 2 GM in SODIUM CHLORIDE 0.9% 100 ML IVPB SCH ×2 (10:58→19:15)
[2019-01-22 11:46] LABS: Glucose,Whole Blood 248 mg/dL (75-99)
[2019-01-22] MEDS ORDERED: VANCOMYCIN 2,250 MG in SODIUM CHLORIDE 0.9% 500 ML 500 ML IVPB SCH (12:00)
[2019-01-22] MEDS: HYDROcodone/APAP 5-325MG 1 EACH TAB PO PRN ×2 (12:23→19:15)
[2019-01-22 13:09] LABS: Basophils # (A) 0.1 k/uL (0-0.2); Basophils % (A) 0 %; Eosinophils # (A) 0.2 k/uL (0-0.7); Eosinophils % (A) 2 %; HCT 39.3 % (39.0-53.0); HGB 12.9 gm/dL (13.0-17.5); Lymphocytes # (A) 1.7 k/uL (1.0-4.8); Lymphocytes % (A) 14 %; MCH 29.7 pg (25.0-35.0); Mean Platelet Volume 7.6; Monocytes # (A) 0.5 k/uL (0-1.0); Monocytes % (A) 4 %; Neutrophils # (A) 9.8 k/uL (1.3-7.7); Neutrophils % (A) 78 %; Platelet Count 217 k/uL (150-450); RBC 4.37 m/uL (4.30-5.90); RDW 13.3 % (11.5-15.5); WBC 12.5 k/uL (3.8-10.6)
[2019-01-22 13:14] LABS: Anion Gap 8 mmol/L; Blood Urea Nitrogen 8 mg/dL (9-20); Calcium 8.5 mg/dL (8.4-10.2); Carbon Dioxide 24 mmol/L (22-30); Chloride 104 mmol/L (98-107); Glucose 283 mg/dL (74-99); Potassium 3.8 mmol/L (3.5-5.1); Sodium 136 mmol/L (137-145)
[2019-01-22 17:04] LABS: Glucose,Whole Blood 235 mg/dL (75-99)
[2019-01-22] MEDS: PRAMIPEXOLE 1 MG TAB PO SCH (19:14)
[2019-01-22] MEDS: ATORVASTATIN 10 MG TAB PO SCH (19:14)
--- NOTE | 2019-01-22 20:00 | P.PN ---
Subjective Progress Note Date: 01/22/19 Principal diagnosis: Perianal cellulitis 43-year-old male with PMH of prediabetes presents the ED for fever and chills, rectal pain. Patient reports that he has been experiencing irritation in the perianal area over the past week with defecation. Patient reports profound chills the day prior to admission midday followed by fevers. Patient was not able to check his temperature. Patient reports that the morning of admission as he was attempting to have a bowel movement, he felt a mass the prompted him to come to the ED. Of note, patient reports a history of pilonidal cyst that was removed by Dr. Heredia greater than 10 years ago. He reports that there is occasional drainage from the surgical site, which happened after laminectomy/back surgery. Patient was noted to have a leukocytosis of 20.7, T- max of 101.[address] showed moderate soft tissue inflammatory changes in the left perianal fat without abscess. Patient was initially started on vancomycin and Flagyl IV. Infectious disease was consulted and recommended addition of cefepime. General surgery was consulted and recommended I&D. Patient was noted to have an elevated blood glucose as high as 312. He was started on insulin for glycemic control. Blood cultures are preliminarily negative at 24 hours. Wound cultures grew strep agalactiae with pending sensitivities. Patient seen and examined. T-max 100.4F on 01/21/2019. Seen after OR. Patient reports significant improvement in his pain and swelling. He denies fevers or chills. No nausea or vomiting. Wound cultures growing strep agalactiae. Objective - Vital Signs Vital signs: Vital Signs Temp 98.3 F 01/22/19 06:56 Pulse 100 01/22/19 06:56 Resp 15 01/22/19 06:56 BP 132/87 01/22/19 06:56 Pulse Ox 95 01/22/19 06:56 Intake & Output 01/21/19 01/22/19 01/22/19 18:59 06:59 18:59 Intake Total 1260 2940 Output Total 1200 2250 Balance 60 690 Intake: Intake, IV Titration 2300 Amount Cefepime 2 gm In Sodium 100 Chloride 0.9% 100 ml @ 200 mls/hr IVPB Q12HR [facility] Rx#:[id number] Sodium Chloride 0.9% 1, 1000 000 ml @ 100 mls/hr IV . Q10H [facility] Rx#:[id number] Vancomycin 2,000 mg In 1000 Sodium Chloride 0.9% 500 ml 500 ml @ 167 mls/hr IVPB Q8H [facility] Rx#: [id number] metroNIDAZOLE-NS PMX 500 200 mg In Saline 1 100ml.bag @ 100 mls/hr IVPB Q8HR [facility] Rx#:[id number] Oral 1260 640 Output: Urine 1200 2250 Other: Voiding Method Toilet # Voids 3 1 - Exam General: [non toxic], [no distress], [appears at stated age] Derm: [warm], [dry] Head: [atraumatic], [normocephalic], [symmetric] Eyes: [EOMI], [no lid lag], [anicteric sclera] Mouth: [no lip lesion], [mucus membranes moist] Cardiovascular: [S1S2 reg], [no murmur], [positive DP pulse bilateral] Lungs: [CTA bilateral], [no rhonchi, no rales] , [no accessory muscle use] Abdominal: [soft], [ nontender to palpation], [no guarding], [no appreciable organomegaly], [there is some perianal erythema which is tender to palpation, draining serosanguineous fluid, increased swelling] Ext: [no gross muscle atrophy], [no edema], [no contractures], [midline surgical scar of the thoracic and lumbar area] Neuro: [no focal neuro deficits] Psych: [Alert], [oriented], [appropriate affect] - Labs CBC & Chem 7: 01/22/19 12:47 01/22/19 12:47 Labs: Abnormal Lab Results - Last 24 Hours (Table) 01/21/19 01/21/19 01/21/19 Range/Units 11:39 16:41 20:58 POC Glucose (mg/dL) 275 H 270 H 218 H (75-99) mg/dL 01/22/19 Range/Units 07:16 POC Glucose (mg/dL) 272 H (75-99) mg/dL Microbiology - Last 24 Hours (Table) 01/21/19 09:22 Gram Stain - Preliminary Buttock Wound Culture - Preliminary Strep agalactiae - (group b) 01/20/19 09:50 Blood Culture - Preliminary Blood No Growth after 24 hours Assessment and Plan Assessment: Assessment and Plan Perianal cellulitis Hyponatremia Metabolic acidosis Diabetes mellitus with hyperglycemia Patient is leukocytosis of 20.7-20, T-max 100.4 2 PM yesterday. Vital signs within normal limits. Pelvic CT shows moderate soft tissue inflammatory changes in the left perianal fat without abscess. Plan: Continue vancomycin and Flagyl IV. Infectious disease consulted, recommends addition of cefepime. Tylenol or morphine as needed for pain management. General surgery plans for I&D today. Tylenol as needed for fever or chills. Follow blood culture. Follow wound cu ltures. Follow general surgery consult. Follow ID consult. Sodium 133-135. This is pseudo-hyponatremia given patient's elevated blood glucose. Plan: Daily BMP. Bicarbonate of 20-23. Unknown etiology. Lactic acid within normal limits. Plain: resolved. [id number] glucose 272. Likely secondary to stress from infection. Plan: Low carb diet. Insulin sliding scale. Regular Accu-Cheks. Hypoglycemic precautions. Start NovoLog 2 units 3 times a day. DVT prophylaxis: [Heparin] Discussed with: [Patient] Anticipated discharge: [1-2 days] Anticipated discharge place: [Home] Plans for I&D today. Wound cultures and sensitivities pending. Continue IV antibiotics. General surgery and ID on board. Likely DC tomorrow. Patient names his Neyda indicates that he can make decisions for himself. Patient reiterates FULL CODE.
[2019-01-22 20:45] LABS: Glucose,Whole Blood 262 mg/dL (75-99)
[2019-01-23] MEDS: SODIUM CHLORIDE 0.9% 1,000 ML IV SCH (00:55)
[2019-01-23] MEDS: ceFAZolin IN SWFI 2 GM/20 ML SYRINGE IVP SCH ×2 (00:55→10:26)
[2019-01-23] MEDS: CLINDAMYCIN 600 MG in DEXTROSE 5% IN WATER 50 ML IVPB SCH ×4 (00:55→07:47)
[2019-01-23] MEDS: HYDROcodone/APAP 5-325MG 1 EACH TAB PO PRN ×2 (03:27→07:46)
[2019-01-23] MEDS: KETOROLAC 30 MG/ML 1 ML VIAL IVP SCH ×2 (03:27→10:26)
[2019-01-23 07:12] LABS: Glucose,Whole Blood 213 mg/dL (75-99)
[2019-01-23] MEDS: LORazepam 1 MG TAB PO SCH (07:47)
[2019-01-23] MEDS: GABAPENTIN 300 MG CAP PO SCH (07:47)
[2019-01-23] MEDS: INSULIN ASPART (NovoLOG) 100 UNIT/ML VIAL SQ SCH ×4 (07:47→12:35)
[2019-01-23 08:05] VITALS: BP 133/58; PULSE 75; RESP 16; TEMP 98
[2019-01-23] MEDS: HEPARIN SODIUM,PORCINE 5,000 UNIT/ML 1 ML VIAL SQ SCH (08:30)
[2019-01-23 09:00] LABS: Basophils # (A) 0.1 k/uL (0-0.2); Basophils % (A) 1 %; Eosinophils # (A) 0.4 k/uL (0-0.7); Eosinophils % (A) 5 %; HCT 39.4 % (39.0-53.0); Lymphocytes # (A) 1.8 k/uL (1.0-4.8); Lymphocytes % (A) 19 %; MCH 29.7 pg (25.0-35.0); MCV 89.9 fL (80.0-100.0); Mean Platelet Volume 7.3; Monocytes # (A) 0.5 k/uL (0-1.0); Monocytes % (A) 5 %; Neutrophils # (A) 6.4 k/uL (1.3-7.7); Neutrophils % (A) 69 %; Platelet Count 250 k/uL (150-450); RBC 4.38 m/uL (4.30-5.90); RDW 13.7 % (11.5-15.5); WBC 9.3 k/uL (3.8-10.6)
[2019-01-23] MEDS: FLUTICASONE 50MCG/SPRAY NASAL 16GM EA NOSTRIL SCH (10:27)
[2019-01-23] MEDS: LACTATED RINGERS 1,000 ML IV SCH (10:27)
--- NOTE | 2019-01-23 11:05 | P.PN ---
Subjective Progress Note Date: 01/23/19 CHIEF COMPLAINT: Left buttock abscess HISTORY OF PRESENT ILLNESS: Patient seen and examined at the bedside. Patient states his pain is significantly improved today. Patient tolerating PO intake. Denies nausea or vomiting. Denies diarrhea or constipation. Patient is hoping to be discharged home today. PHYSICAL EXAM: VITAL SIGNS: Reviewed. GENERAL: Well-developed in no acute distress. HEENT: No sclera icterus. Extraocular movements grossly intact. Moist buccal mucosa. Head is atraumatic, normocephalic. ABDOMEN: Soft. Nondistended. Nontender. NEUROLOGIC: Alert and oriented. Cranial nerves II through XII grossly intact. SKIN: [place] drain to left buttock with serosanguineous drainage. Skin soft. No erythema. ASSESSMENT: 1. Left buttock abscess with cellulitis PLAN: Patient is stable for discharge from a surgical standpoint. He is going to follow up with Dr. Heredia outpatient in a week for removal of delvin drain. Nurse practitioner note has been reviewed by physician. Signing provider agrees with the documented findings, assessment, and plan of care. Objective - Vital Signs Vital signs: Vital Signs Temp 98.0 F 01/23/19 07:00 Pulse 75 01/23/19 07:00 Resp 16 01/23/19 07:00 BP 133/58 01/23/19 07:00 Pulse Ox 97 01/23/19 07:00 Intake & Output 01/22/19 01/23/19 01/23/19 18:59 06:59 18:59 Intake Total 1520 640 390 Output Total 10 675 Balance 1510 -35 390 Intake: IV 720 Intake, IV Titration 100 Amount Sodium Chloride 0.9% 1, 100 000 ml @ 100 mls/hr IV . Q10H IAN Rx#:[id number] Oral 600 540 390 Other 200 Output: Urine 675 Estimated Blood Loss 10 Other: Voiding Method Toilet # Voids 2 - Labs CBC & Chem 7: 01/23/19 07:54 01/22/19 12:47 Labs: Abnormal Lab Results - Last 24 Hours (Table) 01/22/19 01/22/19 01/22/19 Range/Units 11:38 12:47 12:47 WBC 12.5 H (3.8-10.6) k/uL Hgb 12.9 L (13.0-17.5) gm/dL Neutrophils # 9.8 H (1.3-7.7) k/uL Sodium 136 L (137-145) mmol/L BUN 8 L (9-20) mg/dL Creatinine 0.56 L (0.66-1.25) mg/dL Glucose 283 H (74-99) mg/dL POC Glucose (mg/dL) 248 H (75-99) mg/dL 01/22/19 01/22/19 01/23/19 Range/Units 17:02 20:33 07:01 WBC (3.8-10.6) k/uL Hgb (13.0-17.5) gm/dL Neutrophils # (1.3-7.7) k/uL Sodium (137-145) mmol/L BUN (9-20) mg/dL Creatinine (0.66-1.25) mg/dL Glucose (74-99) mg/dL POC Glucose (mg/dL) 235 H 262 H 213 H (75-99) mg/dL Microbiology - Last 24 Hours (Table) 01/22/19 10:02 Gram Stain - Preliminary Tissue - Other Tissue Culture - Preliminary 01/22/19 10:02 Gram Stain - Preliminary Buttock Wound Culture - Preliminary 01/22/19 10:02 Anaerobic Culture - Preliminary Tissue - Other 01/22/19 10:02 Anaerobic Culture - Preliminary Buttock 01/20/19 09:50 Blood Culture - Preliminary Blood No Growth after 48 hours 01/21/19 09:22 Gram Stain - Preliminary Buttock Wound Culture - Preliminary Strep agalactiae - (group b) Assessment and Plan (1) Abscess Current Visit: Yes Status: Acute Code(s): L02.91 - CUTANEOUS ABSCESS, UNSPECIFIED SNOMED Code(s): 660910344
[2019-01-23 12:00] LABS: Glucose,Whole Blood 236 mg/dL (75-99)
--- NOTE | 2019-01-23 12:03 | P.PN ---
Subjective Progress Note Date: 01/22/19 Principal diagnosis: Left gluteal abscess and cellulitis Patient is 43-year-old male admitted to the hospital with left gluteal cellulitis the patient is status post drainage of an abscess by surgery. The patient currently denies having any fever or chills pain to the left gluteal is currently controlled the pain medication the patient denies having any chest pain shortness of breath or cough no abdominal pain and no diarrhea Objective - Vital Signs Vital signs: Vital Signs Temp 98.5 F 01/22/19 11:11 Pulse 85 01/22/19 12:41 Resp 17 01/22/19 19:28 BP 142/84 01/22/19 12:41 Pulse Ox 97 01/22/19 11:11 Intake & Output 01/22/19 01/22/19 01/23/19 06:59 18:59 06:59 Intake Total 2940 1520 640 Output Total 2250 10 Balance 690 1510 640 Intake: IV 720 Intake, IV Titration 2300 100 Amount Cefepime 2 gm In Sodium 100 Chloride 0.9% 100 ml @ 200 mls/hr IVPB Q12HR IAN Rx#:[id number] Sodium Chloride 0.9% 1, 1000 100 000 ml @ 100 mls/hr IV . Q10H IAN Rx#:[id number] Vancomycin 2,000 mg In 1000 Sodium Chloride 0.9% 500 ml 500 ml @ 167 mls/hr IVPB Q8H IAN Rx#: [id number] PMX 500 200 mg In Saline 1 100ml.bag @ 100 mls/hr IVPB Q8HR IAN Rx#:[id number] Oral 640 600 540 Other 200 Output: Urine 2250 Estimated Blood Loss 10 Other: Voiding Method Toilet Toilet # Voids 1 2 - Exam GENERAL DESCRIPTION:[ Middle-aged male lying in bed in no distress] HEENT: [No pallor or scleral icterus oral mucous membrane is moist] EYES : [No pallor or scleral icterus] RESPIRATORY SYSTEM: [Unlabored breathing decreased breath sound at the base] CARDIA VASCULAR SYSTEM: [S1-S2 regular rate and rhythm no murmur] GI: [Abdominal soft there's no tenderness no organomegaly] EXTREMITIES: [No edema feet] - Labs CBC & Chem 7: 01/23/19 07:54 01/22/19 12:47 Labs: Abnormal Lab Results - Last 24 Hours (Table) 01/21/19 01/22/19 01/22/19 Range/Units 20:58 07:16 11:38 WBC (3.8-10.6) k/uL Hgb (13.0-17.5) gm/dL Neutrophils # (1.3-7.7) k/uL Sodium (137-145) mmol/L BUN (9-20) mg/dL Creatinine (0.66-1.25) mg/dL Glucose (74-99) mg/dL POC Glucose (mg/dL) 218 H 272 H 248 H (75-99) mg/dL 01/22/19 01/22/19 01/22/19 Range/Units 12:47 12:47 17:02 WBC 12.5 H (3.8-10.6) k/uL Hgb 12.9 L (13.0-17.5) gm/dL Neutrophils # 9.8 H (1.3-7.7) k/uL Sodium 136 L (137-145) mmol/L BUN 8 L (9-20) mg/dL Creatinine 0.56 L (0.66-1.25) mg/dL Glucose 283 H (74-99) mg/dL POC Glucose (mg/dL) 235 H (75-99) mg/dL Microbiology - Last 24 Hours (Table) 01/22/19 10:02 Tissue Culture - Preliminary Tissue - Other 01/22/19 10:02 Anaerobic Culture - Preliminary Tissue - Other 01/22/19 10:02 Wound Culture - Preliminary Buttock 01/22/19 10:02 Anaerobic Culture - Preliminary Buttock 01/20/19 09:50 Blood Culture - Preliminary Blood No Growth after 48 hours 01/21/19 09:22 Gram Stain - Preliminary Buttock Wound Culture - Preliminary Strep agalactiae - (group b) Assessment and Plan Assessment: 1-patient with left gluteal cellulitis and abscesses status post drainage of th is abscess initial culture showing group B strep with OR cultures currently pending (1) Leukocytosis Current Visit: Yes Status: Acute Code(s): D72.829 - ELEVATED WHITE BLOOD CELL COUNT, UNSPECIFIED SNOMED Code(s): 820698626 (2) Perianal cellulitis Current Visit: Yes Status: Acute Code(s): K61.0 - ANAL ABSCESS SNOMED Code(s): 408426269 Plan: 1-we will discontinue vancomycin and cefepime 2-start the patient on cefazolin 2 g every 8 hours and clindamycin 3-we will wait for the OR cultures to finalize, to determine his discharge antibiotic Time with Patient: Less than 30
[2019-01-23 12:27] LABS: Hemoglobin A1C 11.2 % (4.0-6.0)
--- NOTE | 2019-01-23 13:10 | P.DS ---
Providers Date of admission: 01/22/19 10:16 Attending physician: Alisha Matta MD Consults: 01/20/19 13:02 Consult Physician Stat Consulting Provider: Tara Garcia Consult Reason/Comments: surgery Do you want consulting provider notified?: Yes 01/20/19 13:52 Consult Physician Stat Consulting Provider: Brett Randall Consult Reason/Comments: Cellulitis peranal Do you want consulting provider notified?: Yes [facility] Course: Date of admission: 01/20/2019 Date of discharge 01/23/2019 Chief complaint: Fever, chills and the rectal pain Discharge diagnoses: 1.. periAnal cellulitis and abscess 2. Type 2 diabetes mellitus with hyperglycemia Consultants: 1. General surgery 2. Infectious disease Imaging: CT pelvis: Moderate left perianal fat tissue swelling without drainable abscess Procedures: Left buttock abscess incision and drainage Cultures of colon group B Streptococcus History of present illness: This is a 43-year-old male with history of diabetes who presented with perirectal pain fever chills. CT found inflammation consistent with cellulitis in that area. Patient was initially stunned that on vancomycin and cefepime. Cultures results showed group B streptococcus he was changed to cefazolin. He showed significant improvement with resolution of fever and viable cell count is feeling much better. He was cleared for discharge with infectious disease and general surgery. infectious disease service provided prescription for antibiotic and he was discharged home Patient Condition at Discharge: Fair Plan - Discharge Summary Discharge Rx Participant: Yes New Discharge Prescriptions: Continue Ergocalciferol [Vitamin D2 (DRISDOL)] 50,000 unit PO Q7D Simvastatin [Zocor] 20 mg PO HS Rizatriptan Benzoate [Maxalt SUPERVISOR DOCK] 10 mg PO DAILY PRN PRN Reason: Headache Fluticasone Nasal [place] [Flonase Nasal Dundas] 2 spr EA NOSTRIL DAILY Pramipexole [Mirapex] 2 mg PO HS Phentermine HCl [Adipex-P] 37.5 mg PO DAILY LORazepam [Ativan] 1 mg PO BID Gabapentin [Neurontin] 600 mg PO TID metFORMIN HCL [Glucophage] 850 mg PO BID Niacin [Niaspan] 1,000 mg PO HS Discontinued tiZANidine [Zanaflex] 4 mg PO Q8HR Ranitidine HCl [Zantac] 300 mg PO BID Diclofenac Sodium [Diclofenac Sodium ER] 100 mg PO DAILY Discharge Medication List Ergocalciferol [Vitamin D2 (DRISDOL)] 50,000 unit PO Q7D 01/20/19 [History] Fluticasone Nasal [place] [Flonase Nasal [place]] 2 spr EA NOSTRIL DAILY 01/20/19 [History] Gabapentin [Neurontin] 600 mg PO TID 01/20/19 [History] LORazepam [Ativan] 1 mg PO BID 01/20/19 [History] Niacin [Niaspan] 1,000 mg PO HS 01/20/19 [History] Phentermine HCl [Adipex-P] 37.5 mg PO DAILY 01/20/19 [History] Pramipexole [Mirapex] 2 mg PO HS 01/20/19 [History] Rizatriptan Benzoate [Maxalt SUPERVISOR DOCK] 10 mg PO DAILY PRN 01/20/19 [History] Simvastatin [Zocor] 20 mg PO HS 01/20/19 [History] metFORMIN HCL [Glucophage] 850 mg PO BID 01/20/19 [History] Follow up Appointment(s)/Referral(s): Tara Garcia MD [STAFF PHYSICIAN] - 02/07/19 11:45 am Norbert Torres DO [Primary Care Provider] - 1-2 days Patient Instructions/Handouts: Abscess Incision and Drainage (DC)
--- NOTE | 2019-01-23 19:59 | P.PN ---
Subjective Progress Note Date: 01/23/19 Principal diagnosis: Left gluteal abscess and cellulitis Patient is 43-year-old male admitted to the hospital with left gluteal cellulitis the patient is status post drainage of an abscess by surgery. The patient denies having any fever or chills today, pain to the left gluteal is currently controlled the pain medication the patient denies having any chest pain shortness of breath or cough no abdominal pain and no diarrhea and is anxious to go home Objective - Vital Signs Vital signs: Vital Signs Temp 98.0 F 01/23/19 07:00 Pulse 75 01/23/19 07:00 Resp 16 01/23/19 07:00 BP 133/58 01/23/19 07:00 Pulse Ox 97 01/23/19 07:00 Intake & Output 01/22/19 01/23/19 01/23/19 18:59 06:59 18:59 Intake Total 1520 640 390 Output Total 10 675 Balance 1510 -35 390 Intake: IV 720 Intake, IV Titration 100 Amount Sodium Chloride 0.9% 1, 100 000 ml @ 100 mls/hr IV . Q10H IAN Rx#:[id number] Oral 600 540 390 Other 200 Output: Urine 675 Estimated Blood Loss 10 Other: Voiding Method Toilet # Voids 2 - Exam GENERAL DESCRIPTION:[ Middle-aged male lying in bed in no distress] HEENT: [No pallor or scleral icterus oral mucous membrane is moist] EYES : [No pallor or scleral icterus] RESPIRATORY SYSTEM: [Unlabored breathing decreased breath sound at the base] CARDIA VASCULAR SYSTEM: [S1-S2 regular rate and rhythm no murmur] GI: [Abdominal soft there's no tenderness , left gluteal area no induration did have a Eileen drain in the abscess cavity] EXTREMITIES: [No edema feet] - Labs CBC & Chem 7: 01/23/19 07:54 01/22/19 12:47 Labs: Abnormal Lab Results - Last 24 Hours (Table) 01/22/19 01/22/19 01/22/19 Range/Units 12:47 12:47 17:02 WBC 12.5 H (3.8-10.6) k/uL Hgb 12.9 L (13.0-17.5) gm/dL Neutrophils # 9.8 H (1.3-7.7) k/uL Sodium 136 L (137-145) mmol/L BUN 8 L (9-20) mg/dL Creatinine 0.56 L (0.66-1.25) mg/dL Glucose 283 H (74-99) mg/dL POC Glucose (mg/dL) 235 H (75-99) mg/dL 01/22/19 01/23/19 01/23/19 Range/Units 20:33 07:01 11:49 WBC (3.8-10.6) k/uL Hgb (13.0-17.5) gm/dL Neutrophils # (1.3-7.7) k/uL Sodium (137-145) mmol/L BUN (9-20) mg/dL Creatinine (0.66-1.25) mg/dL Glucose (74-99) mg/dL POC Glucose (mg/dL) 262 H 213 H 236 H (75-99) mg/dL Microbiology - Last 24 Hours (Table) 01/20/19 09:50 Blood Culture - Preliminary Blood No Growth after 72 hours 01/22/19 10:02 Gram Stain - Preliminary Tissue - Other Tissue Culture - Preliminary 01/22/19 10:02 Gram Stain - Preliminary Buttock Wound Culture - Preliminary 01/22/19 10:02 Anaerobic Culture - Preliminary Tissue - Other 01/22/19 10:02 Anaerobic Culture - Preliminary Buttock 01/21/19 09:22 Gram Stain - Preliminary Buttock Wound Culture - Preliminary Strep agalactiae - (group b) Assessment and Plan Assessment: 1-patient with left gluteal cellulitis and abscesses status post drainage of this abscess initial culture showing group B strep with OR cultures currently pending, however the patient is insisting on going home (1) Leukocytosis Status: Acute Code(s): D72.829 - ELEVATED WHITE BLOOD CELL COUNT, UNSPECIFIED SNOMED Code(s): 682071903 (2) Perianal cellulitis Status: Acute Code(s): K61.0 - ANAL ABSCESS SNOMED Code(s): 640491073 Plan: 1-the patient antibiotic will be switched over to Keflex 500 mg by mouth every 6 hours for 10 days prescription has been sent to the pharmacy with close outpatient follow-up Time with Patient: Less than 30
--- NOTE | 2019-01-25 07:01 | CDI ---
Documentation Clarification Form Date: 01/25/19 From: Katrina Gallardo Phone: If questions call Sue Haley @ [phone], Hours-8:30 am & 5 pm M- [place] Admit Date: 01/22/2019 10:16:00 AM Patient Name: Kostas Claros Visit Number: [id number] Discharge Date: 01/23/2019 2:31:00 PM ATTENTION: The Clinical Documentation Specialists (CDI) and [facility] Coding Staff appreciate your assistance in clarifying documentation. Please respond to the clarification below the line at the bottom and electronically sign. The CDI & [facility] [employer] Coding staff will review the response and follow-up if needed. Please note: Queries are made part of the Legal Health Record. If you have any questions, please contact the author of this message via ITS. Dr. Andrea García Conflicting documentation has been found in the medical record: Per operative note Dr Low states "sepsis due to left buttock abscess with cellulitis". Sepsis was not documented further in the record. Clinical Indicators: lactic acid-1.4, WBC-20.7, Neutrophils-16.7 Temp: 01/20-101.3, adm date 01/22-99.8 Pulse: 01/20-109 (left), adm date Treatment: IV fluids, IV Levaquin, IV Flagyl, IV Vancomycin, IV Maxipime, IV Clindamycin In your opinion, what is the most clinically appropriate diagnosis for this patient? Sepsis ruled in Sepsis ruled out Other explanation of clinical findings Unable to determine (no explanation for clinical findings) sepsis ruled out MTDD
== END 2019-01-23 14:31 | disposition home or self-care (01) | DRG 394 ==
LOC: EC 09:08 → 3NMEDONC 12:54 → 4SSUR 14:28 → OBSVTOIN 01-22 10:16
PROVIDERS: ADMIT Family Medicine; ATTEND Family Medicine
PROC: 0HB8XZZ Excision of Buttock Skin, External Approach (ICD-10-PCS; 2019-01-22)
PROC: 0J990ZX Drainage of Buttock Subcutaneous Tissue and Fascia, Open Approach, Diagnostic (ICD-10-PCS; principal; 2019-01-22 09:00)
DX: K61.0 Anal abscess (principal); E87.1 Hypo-osmolality and hyponatremia; E87.2 Acidosis; L03.317 Cellulitis of buttock; Z68.41 Body mass index [BMI] 40.0-44.9, adult; L02.31 Cutaneous abscess of buttock; E11.65 Type 2 diabetes mellitus with hyperglycemia; E66.01 Morbid (severe) obesity due to excess calories; B95.1 Streptococcus, group B, as the cause of diseases classified elsewhere; G89.29 Other chronic pain; M25.569 Pain in unspecified knee; Z79.84 Long term (current) use of oral hypoglycemic drugs; Z79.899 Other long term (current) drug therapy; Z86.14 Personal history of Methicillin resistant Staphylococcus aureus infection
CPT/HCPCS: 36415; 72193; 80048; 80053; 80202; 81003; 83036; 83605; 85025; 85610; 85730; 87040; 87070; 87075; 87205; 88304; 96361; 96365; 96366; 96367; 96375; 96376; 99285

== ENCOUNTER → 2023-11-22 | Outpatient (CLI) | payer MEDICARE, OTHER ==
--- NOTE | 2023-11-25 14:02 | MR ---
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 TECHNIQUE: Multiplanar, multisequence imaging of the right shoulder is performed without contrast. FINDINGS: Suboptimal study with artifact thought on basis of large body habitus Rotator Cuff: Some increased signal in the infraspinatus tendon. More prominent increased signal in t he supraspinatus tendon. Intact subscapularis tendon. Rotator cuff muscle bulk preserved. Acromioclavicular Joint: Mild to moderate narrowing greatest posteriorly. Mild/moderate capsular hype rtrophy. Loss of underlying fat plane on sagittal image 10 is noted. Glenohumeral Joint: Small to moderate size joint effusion. No significant spurring. Labrum: The labrum appears grossly intact given limitation of non-arthrogram study. Biceps Tendon: The long head of biceps is in normal location within bicipital groove. Bone marrow signal: Large subchondral cysts involving the superior humeral head. Other: No additional significant abnormality is appreciated. IMPRESSION: 1. Tendinosis of the infraspinatus tendon. More prominent tendinosis/partial tearing of the supraspin atus tendon. 2. AC joint arthropathy with suggestion of underlying impingement. Correlate clinically. 3. Small to moderate-size glenohumeral joint effusion.
== END | disposition home or self-care (01) ==
LOC: RADMRIMAIN 15:00
PROVIDERS: ATTEND Family Medicine
DX: M19.011 Primary osteoarthritis, right shoulder (principal); M75.111 Incomplete rotator cuff tear or rupture of right shoulder, not specified as traumatic; M75.102 Unspecified rotator cuff tear or rupture of left shoulder, not specified as traumatic; M67.813 Other specified disorders of tendon, right shoulder; M25.811 Other specified joint disorders, right shoulder; M25.411 Effusion, right shoulder

== ENCOUNTER → 2023-11-22 | Outpatient (CLI) | payer MEDICARE, OTHER ==
--- NOTE | 2023-11-25 14:02 | MR ---
EXAMINATION TYPE: MR sacrum/coccyx wo con DATE OF EXAM: 11/22/2023 COMPARISON: CT pelvis January 20, 2019 HISTORY: Pilonidal cyst waistline Standard multiplanar, multisequence MRI departmental protocol Multiplanar, multisequence images of the pelvis were acquired without contrast. FINDINGS: There is some focal ill-defined fluid along the gluteal cleft superficial to the gluteus mu scles and distal sacrum/coccyx. No well formed round fluid collection or cyst identified. Mild ill-defined fluid posterior to the sacrum seen best on fat saturation coronal images within the deep posterior sacral muscles. Sacrum intact without abnormal bone marrow signal. Sacroiliac joints g rossly within normal limits. Mildly distended bladder is partially imaged. Seminal vesicles are symmetric and unremarkable. Prosta te gland is grossly within normal limits. No free fluid in the pelvis is seen. No suspicious bowel di latation. There is vacuum disc phenomenon with mild to moderate disc space narrowing and spurring at the L4-L5 level. Posterior disc herniation effaces the anterior thecal sac at this level sagittal image 13. Pos terior decompression changes in the lower lumbar spine are redemonstrated. IMPRESSION: Mild ill-defined fluid posterior gluteal cleft and posterior sacral muscles. No well-form ed fluid collection or cyst identified.
== END | disposition home or self-care (01) ==
LOC: RADMRIMAIN 20:30
PROVIDERS: ATTEND Family Medicine
DX: M62.89 Other specified disorders of muscle (principal); L05.91 Pilonidal cyst without abscess
CPT/HCPCS: 72195